=== PATIENT | female | born 1975 | race Caucasian/White ===

== ENCOUNTER 2017-04-10 01:25 | Emergency (ER) | payer OTHER ==
[2017-04-10 03:09] VITALS: BP 153/91
== END 2017-04-10 01:47 | disposition home or self-care (01) ==
LOC: ED 01:25
DX: R05 Cough (principal); M54.9 Dorsalgia, unspecified; M54.30 Sciatica, unspecified side; Z88.5 Allergy status to narcotic agent; Z88.2 Allergy status to sulfonamides; Z88.1 Allergy status to other antibiotic agents
CPT/HCPCS: J7613; J7644; Q0092

== ENCOUNTER 2019-01-08 18:42 | Emergency (ER) | payer OTHER ==
[~2019-01-08] VITALS: Ht 160 cm; Wt 111.1 kg
[2019-01-08 19:01] VITALS: Ht 160 cm; Wt 111.1 kg
[2019-01-08 20:28] LABS: BASOPHIL % 0.2 % (0-2); PLATELET COUNT 345 x10^3mcL (130-400)
[2019-01-08 20:41] LABS: CALCIUM 8.9 mg/dL (8.5-10.1); CARBON DIOXIDE 27.7 mmol/L (21-32); CHLORIDE SERUM 104 mmol/L (98-107); CREATININE SERUM 0.6 mg/dL (0.6-1.0); GFR1 > 60 mL/min; GLUCOSE SERUM 108 mg/dL (74-106); SODIUM SERUM 141 mmol/L (136-145)
[2019-01-08 20:45] LABS: ALBUMIN 3.4 g/dL (3.4-5.0); ALKALINE PHOSPHATASE 80 U/L (46-116); ALT/SGPT 25 U/L (14-59); AST/SGOT 19 U/L (15-37); BILIRUBIN TOTAL 0.17 mg/dL (0.20-1.00); LIPASE 123 IU/L (73-393)
[2019-01-08 23:52] VITALS: BP 165/84
== END 2019-01-08 23:52 | disposition home or self-care (01) ==
LOC: ED 18:42
PROVIDERS: Emergency Medicine
DX: R06.02 Shortness of breath (principal); R07.89 Other chest pain; F41.9 Anxiety disorder, unspecified; Z98.51 Tubal ligation status; Z98.890 Other specified postprocedural states; Z88.1 Allergy status to other antibiotic agents; Z88.2 Allergy status to sulfonamides; Z88.5 Allergy status to narcotic agent
CPT/HCPCS: 36415; 87804

== ENCOUNTER 2019-01-10 20:56 | Emergency (ER) | payer OTHER ==
[~2019-01-10] VITALS: Ht 160 cm; Wt 112.2 kg
[2019-01-10 21:07] VITALS: Ht 160 cm; Wt 112.2 kg
[2019-01-10 22:20] LABS: BASOPHIL % 0.1 % (0-2); PLATELET COUNT 250 x10^3mcL (130-400); RED CELL DISTRIBUTION WIDTH 14.2 % (11.5-14.5)
[2019-01-10 22:34] LABS: CALCIUM 8.3 mg/dL (8.5-10.1); CARBON DIOXIDE 24.6 mmol/L (21-32); CHLORIDE SERUM 102 mmol/L (98-107); CREATININE SERUM 0.7 mg/dL (0.6-1.0); GFR1 > 60 mL/min; GLUCOSE SERUM 123 mg/dL (74-106); POTASSIUM SERUM 3.5 mmol/L (3.5-5.1); SODIUM SERUM 136 mmol/L (136-145)
[2019-01-10 22:38] LABS: ALKALINE PHOSPHATASE 73 U/L (46-116); ALT/SGPT 22 U/L (14-59); AMYLASE 64 U/L (25-115); AST/SGOT 17 U/L (15-37); BILIRUBIN TOTAL 0.14 mg/dL (0.20-1.00); LIPASE 287 IU/L (73-393); TOTAL PROTEIN, SERUM 7.5 g/dL (6.4-8.2)
[2019-01-10 22:40] LABS: ALBUMIN 3.1 g/dL (3.4-5.0)
[2019-01-11 00:22] VITALS: BP 135/71
== END 2019-01-11 00:22 | disposition home or self-care (01) ==
LOC: ED 20:56
PROVIDERS: Emergency Medicine
DX: J10.1 Influenza due to other identified influenza virus with other respiratory manifestations (principal); Z88.2 Allergy status to sulfonamides; Z88.1 Allergy status to other antibiotic agents; Z88.5 Allergy status to narcotic agent; Z98.51 Tubal ligation status; Z98.890 Other specified postprocedural states
CPT/HCPCS: 87804; J2405; J2765; J7613; Q0092

== ENCOUNTER 2019-02-09 07:08 | Emergency (ER) | payer OTHER ==
[~2019-02-09] VITALS: Ht 160 cm; Wt 113.9 kg
[2019-02-09 07:08] VITALS: Ht 160 cm; Wt 113.9 kg
[2019-02-09 09:32] LABS: UA SPECIFIC GRAVITY >=1.030 (1.005-1.035); microscopic required? YES; urine erythrocyte NEGATIVE (NEGATIVE)
[2019-02-09 09:40] LABS: CALCIUM 9.1 mg/dL (8.5-10.1); CARBON DIOXIDE 26.5 mmol/L (21-32); CHLORIDE SERUM 106 mmol/L (98-107); CREATININE SERUM 0.5 mg/dL (0.6-1.0); GFR1 > 60 mL/min; GLUCOSE SERUM 119 mg/dL (74-106); POTASSIUM SERUM 3.7 mmol/L (3.5-5.1); SODIUM SERUM 141 mmol/L (136-145)
[2019-02-09 09:44] LABS: BASOPHIL % 0.3 % (0-2); PLATELET COUNT 305 x10^3mcL (130-400); RED CELL DISTRIBUTION WIDTH 14.3 % (11.5-14.5)
[2019-02-09 09:53] LABS: AMPHETAMINE QUAL UR NONE DETECTED (See below)
[2019-02-09 09:55] LABS: ALKALINE PHOSPHATASE 78 U/L (46-116); ALT/SGPT 7 U/L (14-59); AMYLASE 58 U/L (25-115); AST/SGOT 9 U/L (15-37); HDL CHOLESTEROL 41 mg/dL (40-60); LIPASE 143 IU/L (73-393); TOTAL PROTEIN, SERUM 7.5 g/dL (6.4-8.2)
[2019-02-09 10:08] LABS: ALBUMIN 3.1 g/dL (3.4-5.0); BILIRUBIN TOTAL 0.09 mg/dL (0.20-1.00); CHOLESTEROL 201 mg/dL (<200)
[2019-02-09 11:14] VITALS: BP 165/103
== END 2019-02-09 11:14 | disposition home or self-care (01) ==
LOC: ED 07:08
PROVIDERS: Emergency Medicine
DX: F41.9 Anxiety disorder, unspecified (principal); G40.909 Epilepsy, unspecified, not intractable, without status epilepticus; E66.01 Morbid (severe) obesity due to excess calories; M54.30 Sciatica, unspecified side; Z68.41 Body mass index [BMI] 40.0-44.9, adult; Z98.51 Tubal ligation status; Z88.2 Allergy status to sulfonamides; Z88.1 Allergy status to other antibiotic agents; Z88.5 Allergy status to narcotic agent
CPT/HCPCS: 36415; 36600; 83880

== ENCOUNTER 2019-11-23 17:27 | Emergency (ER) | payer OTHER ==
[~2019-11-23] VITALS: Ht 160 cm; Wt 115.2 kg
[2019-11-23 17:39] VITALS: Ht 160 cm; Wt 115.2 kg
[2019-11-23 19:21] LABS: microscopic required? YES; urine erythrocyte TRACE (NEGATIVE)
[2019-11-23 19:27] LABS: BASOPHIL % 0.1 % (0-2); PLATELET COUNT 294 x10^3mcL (130-400); RED CELL DISTRIBUTION WIDTH 14.1 % (11.5-14.5)
[2019-11-23 19:30] LABS: CALCIUM 8.6 mg/dL (8.5-10.1); CARBON DIOXIDE 26.3 mmol/L (21-32); CHLORIDE SERUM 105 mmol/L (98-107); CREATININE SERUM 0.6 mg/dL (0.6-1.0); GFR1 > 60 mL/min; GLUCOSE SERUM 122 mg/dL (74-106); SODIUM SERUM 139 mmol/L (136-145)
[2019-11-23 19:34] LABS: ALBUMIN 3.4 g/dL (3.4-5.0); ALKALINE PHOSPHATASE 84 U/L (46-116); ALT/SGPT 134 U/L (14-59); AST/SGOT 196 U/L (15-37); BILIRUBIN TOTAL 0.5 mg/dL (0.20-1.00); LIPASE 117 IU/L (73-393); TOTAL PROTEIN, SERUM 7.9 g/dL (6.4-8.2)
[2019-11-23 20:46] VITALS: BP 166/88
== END 2019-11-23 20:46 | disposition home or self-care (01) ==
LOC: ED 17:27
PROVIDERS: Emergency Medicine
DX: K80.20 Calculus of gallbladder without cholecystitis without obstruction (principal); E66.9 Obesity, unspecified; Z68.42 Body mass index [BMI] 45.0-49.9, adult; G89.29 Other chronic pain; M54.40 Lumbago with sciatica, unspecified side; Z88.1 Allergy status to other antibiotic agents; Z88.2 Allergy status to sulfonamides; Z88.5 Allergy status to narcotic agent; Z98.890 Other specified postprocedural states; Z98.51 Tubal ligation status
CPT/HCPCS: J1885; J2405; J3010

== ENCOUNTER 2020-04-06 08:55 | Inpatient (IN) | payer OTHER ==
[~2020-04-06] VITALS: Ht 160 cm; Wt 112.5 kg
[2020-04-06 09:04] VITALS: Ht 160 cm; Wt 112.5 kg
[2020-04-06 09:36] LABS: PLATELET COUNT 324 x10^3mcL (130-400); RED CELL DISTRIBUTION WIDTH 14.1 % (11.5-14.5)
[2020-04-06 09:44] LABS: BASOPHIL % 3.2 % (0-2)
[2020-04-06 10:01] LABS: CALCIUM 8.9 mg/dL (8.5-10.1); CARBON DIOXIDE 27.3 mmol/L (21-32); CHLORIDE SERUM 103 mmol/L (98-107); CREATININE SERUM 0.7 mg/dL (0.6-1.0); GFR1 > 60 mL/min; GLUCOSE SERUM 152 mg/dL (74-106); POTASSIUM SERUM 3.9 mmol/L (3.5-5.1); SODIUM SERUM 140 mmol/L (136-145)
[2020-04-06 10:05] LABS: ALBUMIN 3.6 g/dL (3.4-5.0); ALKALINE PHOSPHATASE 102 U/L (46-116); ALT/SGPT 147 U/L (14-59); AMYLASE 54 U/L (25-115); AST/SGOT 248 U/L (15-37); BILIRUBIN TOTAL 0.4 mg/dL (0.20-1.00); LIPASE 126 IU/L (73-393); TOTAL PROTEIN, SERUM 7.9 g/dL (6.4-8.2)
[2020-04-06] MEDS ORDERED: CARBAMAZEPINE200 M3 PO (12:03)
[2020-04-06 15:12] LABS: CHOLESTEROL/HDL RATIO 3.9
[2020-04-06 15:16] LABS: T3 TOTAL 1.16 ng/mL
[2020-04-06 15:23] LABS: FREE T4 0.99 ng/dL (0.76-1.46); FREE THYROXINE INDEX 2.4 ug/dL (1.4-4.5); T4(THYROXINE) 8.2 ug/dL (4.7-13.3)
[2020-04-06 15:40] VITALS: BP 172/96
[2020-04-06 18:47] LABS: UA SPECIFIC GRAVITY 1.015 (1.005-1.035); microscopic required? YES; urine erythrocyte NEGATIVE (NEGATIVE)
[2020-04-06 18:57] LABS: AMPHETAMINE QUAL UR NONE DETECTED (See below)
[2020-04-06 19:20] VITALS: BP 172/82
[2020-04-06 23:00] VITALS: BP 121/64
[2020-04-07 05:37] VITALS: BP 146/63
[2020-04-07 06:35] LABS: BASOPHIL % 0.3 % (0-2); PLATELET COUNT 307 x10^3mcL (130-400); RED CELL DISTRIBUTION WIDTH 14.4 % (11.5-14.5)
[2020-04-07 07:06] LABS: CALCIUM 8.5 mg/dL (8.5-10.1); CARBON DIOXIDE 27.3 mmol/L (21-32); CHLORIDE SERUM 106 mmol/L (98-107); CREATININE SERUM 0.6 mg/dL (0.6-1.0); GFR1 > 60 mL/min; GLUCOSE SERUM 96 mg/dL (74-106); MAGNESIUM 2.5 mg/dL (1.8-2.4); POTASSIUM SERUM 3.4 mmol/L (3.5-5.1); SODIUM SERUM 141 mmol/L (136-145)
[2020-04-07 08:17] VITALS: BP 129/68
[2020-04-07 10:27] LABS: ALBUMIN 3.3 g/dL (3.4-5.0); BILIRUBIN DIRECT 0.28 mg/dL (0.0-0.2); BILIRUBIN TOTAL 0.5 mg/dL (0.20-1.00); TOTAL PROTEIN, SERUM 6.4 g/dL (6.4-8.2)
[2020-04-07 12:35] VITALS: BP 154/97
[2020-04-07 16:28] VITALS: BP 148/54
[2020-04-07 19:49] VITALS: BP 154/86
[2020-04-08 05:31] VITALS: BP 125/64
[2020-04-08 07:03] LABS: CALCIUM 8.6 mg/dL (8.5-10.1); CARBON DIOXIDE 24.9 mmol/L (21-32); CHLORIDE SERUM 107 mmol/L (98-107); CREATININE SERUM 0.6 mg/dL (0.6-1.0); GFR1 > 60 mL/min; GLUCOSE SERUM 88 mg/dL (74-106); MAGNESIUM 2.4 mg/dL (1.8-2.4); POTASSIUM SERUM 3.7 mmol/L (3.5-5.1); SODIUM SERUM 142 mmol/L (136-145)
[2020-04-08 07:15] LABS: BASOPHIL % 0.4 % (0-2); PLATELET COUNT 298 x10^3mcL (130-400); RED CELL DISTRIBUTION WIDTH 14.6 % (11.5-14.5)
[2020-04-08 07:42] VITALS: BP 146/60
[2020-04-08 16:25] VITALS: BP 166/84
[2020-04-08 20:20] VITALS: BP 174/82
[2020-04-08 21:02] VITALS: BP 156/85
[2020-04-09 05:32] VITALS: BP 155/77
[2020-04-09 06:44] LABS: BASOPHIL % 0.3 % (0-2); PLATELET COUNT 316 x10^3mcL (130-400); RED CELL DISTRIBUTION WIDTH 14.5 % (11.5-14.5)
[2020-04-09 07:04] LABS: ALKALINE PHOSPHATASE 115 U/L (46-116); ALT/SGPT 477 U/L (14-59); AST/SGOT 337 U/L (15-37); BILIRUBIN TOTAL 0.5 mg/dL (0.20-1.00); CALCIUM 8.4 mg/dL (8.5-10.1); CARBON DIOXIDE 24.1 mmol/L (21-32); CHLORIDE SERUM 106 mmol/L (98-107); CREATININE SERUM 0.6 mg/dL (0.6-1.0); GFR1 > 60 mL/min; GLUCOSE SERUM 91 mg/dL (74-106); POTASSIUM SERUM 3.4 mmol/L (3.5-5.1); SODIUM SERUM 141 mmol/L (136-145); TOTAL PROTEIN, SERUM 6.9 g/dL (6.4-8.2)
[2020-04-09 08:20] LABS: MAGNESIUM 2.2 mg/dL (1.8-2.4); PHOSPHOROUS 3.1 mg/dL (2.5-4.9)
[2020-04-09 10:23] VITALS: BP 166/80
[2020-04-09 13:49] VITALS: BP 198/99
[2020-04-09 17:01] VITALS: BP 195/99
[2020-04-09 20:08] VITALS: BP 153/80
[2020-04-10 05:09] VITALS: BP 143/75
[2020-04-10 06:52] LABS: ALKALINE PHOSPHATASE 141 U/L (46-116); ALT/SGPT 646 U/L (14-59); AST/SGOT 421 U/L (15-37); BILIRUBIN TOTAL 0.9 mg/dL (0.20-1.00); CALCIUM 8.7 mg/dL (8.5-10.1); CARBON DIOXIDE 26.7 mmol/L (21-32); CHLORIDE SERUM 106 mmol/L (98-107); CREATININE SERUM 0.6 mg/dL (0.6-1.0); GFR1 > 60 mL/min; GLUCOSE SERUM 89 mg/dL (74-106); POTASSIUM SERUM 3.5 mmol/L (3.5-5.1); SODIUM SERUM 141 mmol/L (136-145); TOTAL PROTEIN, SERUM 6.4 g/dL (6.4-8.2)
[2020-04-10 07:01] LABS: ALBUMIN 2.9 g/dL (3.4-5.0)
[2020-04-10 07:12] LABS: BASOPHIL % 0.1 % (0-2); MAGNESIUM 2.1 mg/dL (1.8-2.4); PHOSPHOROUS 2.9 mg/dL (2.5-4.9); PLATELET COUNT 295 x10^3mcL (130-400); RED CELL DISTRIBUTION WIDTH 13.6 % (11.5-14.5)
[2020-04-10] MEDS ORDERED: ZES10 PO (09:08)
[2020-04-10] MEDS ORDERED: SEN PO (09:09)
[2020-04-10] MEDS ORDERED: ZOF4 PO (09:10)
[2020-04-10] MEDS ORDERED: SIMETHICONE80 MG PO (09:10)
[2020-04-10] MEDS ORDERED: TOR10 PO (09:18)
[2020-04-10 09:27] VITALS: BP 149/77
[2020-04-10] MEDS ORDERED: LEVAQUIN500 M1 PO (09:33)
[2020-04-10] MEDS ORDERED: FLA500 PO (09:33)
== END 2020-04-10 12:38 | disposition home or self-care (01) | DRG 263 ==
LOC: ED 08:55 → MU 13:45
PROVIDERS: Emergency Medicine; Internal Medicine Gastroenterology; Surgery; ADMIT Student in an Organized Health Care Education/Training Program
PROC: 0FT44ZZ Resection of Gallbladder, Percutaneous Endoscopic Approach (ICD-10-PCS; principal; 2020-04-08 11:00)
PROC: 0F758ZZ Dilation of Right Hepatic Duct, Via Natural or Artificial Opening Endoscopic (ICD-10-PCS; 2020-04-09)
PROC: 0F798ZZ Dilation of Common Bile Duct, Via Natural or Artificial Opening Endoscopic (ICD-10-PCS; 2020-04-09 08:30)
DX: K80.20 Calculus of gallbladder without cholecystitis without obstruction (principal); E66.01 Morbid (severe) obesity due to excess calories; K21.9 Gastro-esophageal reflux disease without esophagitis; D64.9 Anemia, unspecified; R74.0 Nonspecific elevation of levels of transaminase and lactic acid dehydrogenase [LDH]; G40.909 Epilepsy, unspecified, not intractable, without status epilepticus; F41.9 Anxiety disorder, unspecified; M54.30 Sciatica, unspecified side; Z88.1 Allergy status to other antibiotic agents; Z88.2 Allergy status to sulfonamides; Z88.5 Allergy status to narcotic agent; Z98.51 Tubal ligation status; Z82.49 Family history of ischemic heart disease and other diseases of the circulatory system; Z68.41 Body mass index [BMI] 40.0-44.9, adult
CPT/HCPCS: 43262; 74181; 84439; C1769; C1887; G0378; J0290; J0330; J0360; J1170; J1610; J1885; J2250; J2405; J2704; J2710; J3010; J3490; J7030; J7040; J7120; Q0092; Q9967